=== PATIENT | male | born 1940 | race Caucasian/White ===

== ENCOUNTER 2022-07-30 14:12 | Emergency (ER) | payer MEDICARE, OTHER ==
[2022-07-30] MEDS ORDERED: Furosemide 40 MG/4 ML VIAL ONE (14:30)
[2022-07-30 14:58] LABS: ALV-art Gradient 405.975 mmHg (0-20); Actual Bicarbonate (HCO3a) 23.1 mEq/L (22-28); Base Excess (BEa) -4.1 mEq/L (-2.0 to +3.0); CO2 Tension 50.1 mmHg (35.0-45.0); Calcium, Ionized (arterial) 1.19 mmol/L (1.12-1.30); Carboxyhemoglobin (COHb) 1.3 gm% (0.0-3.0); Hemoglobin (Hb) 15.5 g/dL (14.0-18.0); O2 Tension (PaO2), arterial 101.8 mmHg (> 60.0); Potassium - ABG Lab 4.1 mmol/L (3.70-5.30); Puncture Site RRA; pH, Arterial 7.28 (7.35-7.45)
[2022-07-30 15:00] LABS: Bilirubin Neg (Negative); Blood, Urine 10 (Negative); Clarity Clear (Clear); Glucose, Urine (Dipstick) Normal (Negative); Ketone, Urine Negative (Negative); Leukocyte Negative (Negative); Nitrite Negative (Negative); Protein, Urine (Dipstick) 30 mg/dl (Neg-Trace); Urobilinogen Normal mg/dL (Less than 2)
[2022-07-30 15:00] LABS: #Basophils 0.1 10x3/uL (0.0-0.2); #Eosinphils 0.1 10x3/uL (0.0-0.5); #Monocytes 1.1 10x3/uL (0.0-1.1); #Neutrophils 13.8 10x3/uL (1.5-8.4); %Basophils 0.4 % (0.0-2.0); %Eosinophils 0.7 % (0.0-6.0); %Lymphocytes 8.4 % (18.0-47.0); %Monocytes 6.4 % (0.0-10.0); %Neutrophils 83.4 % (40.0-75.0); Hemoglobin 14.7 g/dL (13.5-17.5); Mean Corpuscular Hemoglobin 29.2 pg (27.0-33.0); Mean Corpuscular Volume 88.7 fl (81.2-95.1); Mean Platelet Volume 11.1 fl (7.4-10.4); Platelet Count 225 10x3/uL (150-450); RBC Distribution Width 14.8 % (11.5-14.5); Red Blood Cell (RBC) Count 5.03 10x6/uL (4.32-5.72); White Blood Cell (WBC) Count 16.6 10x3/uL (3.5-10.5)
[2022-07-30 15:20] LABS: ALT (SGPT) 19 U/L (8-55); AST (SGOT) 17 U/L (5-34); Albumin 4.1 g/dL (3.4-4.8); Alkaline Phosphatase 44 U/L (40-110); Anion Gap 15 mmol/L (10-20); BUN (Urea Nitrogen) 20 mg/dL (8.4-25.7); Bilirubin, Total 1.5 mg/dL (0.2-1.2); Calc. Creatinine Clearance 0 mL/min (70-130); Calcium 8.9 mg/dL (7.8-10.44); Carbon Dioxide 21 mmol/L (23-31); Chloride 105 mmol/L (98-107); Estimated GFR 65; Glucose 164 mg/dL (83-110); Potassium 4.3 mmol/L (3.5-5.1); Protein, Total 7.1 g/dL (5.8-8.1); Sodium 137 mmol/L (136-145)
[2022-07-30 15:21] LABS: SARS-CoV-2 NAA Rapid Test Not Detected (NotDetected)
[2022-07-30 15:24] LABS: Bacteria/HPF 1+ HPF (None Seen); Squamous Epithelial 0-3 HPF (0-3); WBC/HPF 0-3 HPF (0-3)
== END 2022-07-30 19:12 | disposition short-term general hospital (02) ==
LOC: CSHERS 14:12
DX: I50.9 Heart failure, unspecified (principal); I35.0 Nonrheumatic aortic (valve) stenosis; D72.829 Elevated white blood cell count, unspecified; Z20.822 Contact with and (suspected) exposure to COVID-19
CPT/HCPCS: 0240U; 36600; 71045; 80053; 82805; 83880; 84484; 85025; 93005; 94660; 36415; 81003; 81015; 96374; J1940

== ENCOUNTER 2024-09-15 02:05 | Inpatient (IN) | payer MEDICARE, OTHER ==
[2024-09-15 03:15] VITALS: BMI 31.1
[2024-09-15] MEDS ORDERED: Guaifenesin DM 100-10/5 ML UDCUP PO PRN (03:24)
[2024-09-15] MEDS ORDERED: Senokot S 8.6-50 MG TAB PO PRN (03:24)
[2024-09-15] MEDS ORDERED: Ondansetron PF 4 MG/2 ML Vial IVP PRN (03:24)
[2024-09-15] MEDS ORDERED: Calcium Carbonate 500 MG ChewTAB PO PRN (03:24)
[2024-09-15] MEDS: Metoprolol Tartrate 25 MG TAB PO SCH ×2 (03:45→09:50)
[2024-09-15] MEDS: Furosemide 20 MG (2 mL) VIAL SLOW IVP SCH (03:45)
[2024-09-15] MEDS: Cefepime 2 GM in Sodium Chloride 0.9% 100 ML IVPB SCH (03:45)
[2024-09-15 04:27] LABS: #Basophils 0.03 10x3/uL (0.0-0.2); #Eosinophils Less than 0.03 10x3/uL (0.0-0.5); #Monocytes 0.28 10x3/uL (0.0-1.1); #Neutrophils 12.31 10x3/uL (1.5-8.4); %Basophils 0.2 % (0.0-2.0); %Eosinophils 0.1 % (0.0-6.0); %Lymphocytes 3.4 % (18.0-47.0); %Monocytes 2.1 % (0.0-10.0); %Neutrophils 93.7 % (40.0-75.0); Hematocrit 40.6 % (38.8-50.0); Hemoglobin 12.9 g/dL (13.5-17.5); Mean Corpuscular HGB CONC 31.8 g/dL (32.0-36.0); Mean Corpuscular Hemoglobin 28.9 pg (27.0-33.0); Mean Platelet Volume 11.3 fL (7.4-10.4); Platelet Count 146 10x3/uL (150-450); RBC Distribution Width 15.1 % (11.5-14.5); Red Blood Cell (RBC) Count 4.46 10x6/uL (4.32-5.72); White Blood Cell (WBC) Count 13.14 10x3/uL (3.5-10.5)
[2024-09-15] MEDS: Doxycycline 100 MG in Sodium Chloride 0.9% 100 ML IVPB SCH (04:37)
[2024-09-15 04:44] LABS: Anion Gap 16 mmol/L (10-20); BUN (Urea Nitrogen) 16 mg/dL (8.4-25.7); Calc. Creatinine Clearance 67 mL/min (70-130); Calcium 9.1 mg/dL (7.8-10.44); Carbon Dioxide 19 mmol/L (23-31); Chloride 108 mmol/L (98-107); Estimated GFR 57; Glucose 158 mg/dL (83-110); Potassium 4.1 mmol/L (3.5-5.1); Sodium 139 mmol/L (136-145)
[2024-09-15 04:47] LABS: Troponin I 0.042 ng/mL (< 0.028)
[2024-09-15 05:11] LABS: Legionella Urinary Ag Negative (Negative); Strep pneumo Urine Ag NEGATIVE (NEGATIVE)
[2024-09-15 08:28] LABS: Troponin I 0.048 ng/mL (< 0.028)
[2024-09-15] MEDS: Allopurinol 300 MG TAB PO SCH (09:43)
[2024-09-15] MEDS: Magnesium Oxide 400 MG TAB PO SCH (09:45)
[2024-09-15] MEDS: Pantoprazole 40 MG DR.TAB PO SCH (09:45)
[2024-09-15] MEDS: Apixaban 5 MG TAB PO SCH (09:45)
[2024-09-15] MEDS: Oseltamivir 75 MG CAP PO SCH (09:46)
[2024-09-15] MEDS: Amiodarone 200 MG TAB PO SCH (09:47)
[2024-09-15] MEDS: Ranolazine ER 500 MG TAB PO SCH (09:49)
[2024-09-15] MEDS: Furosemide 40 MG (4 mL) VIAL SLOW IVP SCH (14:20)
[2024-09-15 15:33] LABS: Magnesium 1.9 mg/dL (1.6-2.6)
[2024-09-15] MEDS: Metoprolol Tartrate 50 MG TAB PO SCH (21:16)
[2024-09-15] MEDS: Rosuvastatin 20 MG TAB PO SCH (21:17)
[2024-09-16 05:29] LABS: #Basophils Less than 0.03 10x3/uL (0.0-0.2); #Eosinophils Less than 0.03 10x3/uL (0.0-0.5); #Monocytes 1.48 10x3/uL (0.0-1.1); #Neutrophils 17.56 10x3/uL (1.5-8.4); %Basophils 0.1 % (0.0-2.0); %Lymphocytes 5.5 % (18.0-47.0); %Monocytes 7.3 % (0.0-10.0); %Neutrophils 86.5 % (40.0-75.0); Hematocrit 37.6 % (38.8-50.0); Hemoglobin 12.6 g/dL (13.5-17.5); Mean Corpuscular HGB CONC 33.5 g/dL (32.0-36.0); Mean Corpuscular Hemoglobin 30.6 pg (27.0-33.0); Mean Corpuscular Volume 91.3 fL (81.2-95.1); Mean Platelet Volume 11.9 fL (7.4-10.4); Platelet Count 183 10x3/uL (150-450); RBC Distribution Width 15.1 % (11.5-14.5); Red Blood Cell (RBC) Count 4.12 10x6/uL (4.32-5.72)
[2024-09-16 05:46] LABS: Anion Gap 13 mmol/L (10-20); BUN (Urea Nitrogen) 33 mg/dL (8.4-25.7); Calc. Creatinine Clearance 64 mL/min (70-130); Carbon Dioxide 24 mmol/L (23-31); Chloride 106 mmol/L (98-107); Estimated GFR 54; Glucose 139 mg/dL (83-110); Potassium 4.1 mmol/L (3.5-5.1); Sodium 139 mmol/L (136-145)
[2024-09-16] MEDS: Isosorbide Mononitrate 30 MG ER.TAB PO SCH (10:20)
[2024-09-16] MEDS: Spironolactone 25 MG TAB PO SCH (10:20)
[2024-09-16] MEDS: guaiFENesin ER 600 MG TAB PO SCH (10:20)
[2024-09-16] MEDS: Losartan 50 MG TAB PO SCH (10:21)
[2024-09-16] MEDS: Furosemide 40 MG TAB PO SCH (15:01)
[2024-09-16] MEDS: Magnesium 2 GM/50 ML(in water) 2 GM in Premix 1 BAG IVPB SCH (15:01)
[2024-09-16] MEDS: Apixaban 5 MG TAB PO SCH (21:00)
[2024-09-17 05:05] LABS: #Basophils 0.04 10x3/uL (0.0-0.2); #Eosinophils 0.08 10x3/uL (0.0-0.5); #Monocytes 1.63 10x3/uL (0.0-1.1); %Basophils 0.3 % (0.0-2.0); %Eosinophils 0.5 % (0.0-6.0); %Lymphocytes 13.7 % (18.0-47.0); %Monocytes 10.4 % (0.0-10.0); %Neutrophils 74.7 % (40.0-75.0); Hematocrit 37.9 % (38.8-50.0); Hemoglobin 12.4 g/dL (13.5-17.5); Mean Corpuscular HGB CONC 32.7 g/dL (32.0-36.0); Mean Corpuscular Hemoglobin 29.7 pg (27.0-33.0); Mean Corpuscular Volume 90.9 fL (81.2-95.1); Mean Platelet Volume 11.7 fL (7.4-10.4); Platelet Count 187 10x3/uL (150-450); RBC Distribution Width 15.2 % (11.5-14.5); Red Blood Cell (RBC) Count 4.17 10x6/uL (4.32-5.72); White Blood Cell (WBC) Count 15.66 10x3/uL (3.5-10.5)
[2024-09-17 05:23] LABS: Anion Gap 12 mmol/L (10-20); BUN (Urea Nitrogen) 44 mg/dL (8.4-25.7); Calc. Creatinine Clearance 48 mL/min (70-130); Carbon Dioxide 29 mmol/L (23-31); Chloride 103 mmol/L (98-107); Estimated GFR 40; Glucose 120 mg/dL (83-110); Magnesium 2.2 mg/dL (1.6-2.6); Sodium 140 mmol/L (136-145)
[2024-09-17] MEDS: methylPREDNISolone Sod Succ/PF 125 MG/2 ML VIAL IVP SCH (11:29)
[2024-09-18 04:29] LABS: #Basophils Less than 0.03 10x3/uL (0.0-0.2); #Eosinophils Less than 0.03 10x3/uL (0.0-0.5); #Monocytes 0.39 10x3/uL (0.0-1.1); #Neutrophils 12.03 10x3/uL (1.5-8.4); %Basophils 0.1 % (0.0-2.0); %Lymphocytes 8.5 % (18.0-47.0); %Monocytes 2.9 % (0.0-10.0); Hematocrit 39.3 % (38.8-50.0); Hemoglobin 13.4 g/dL (13.5-17.5); Mean Corpuscular HGB CONC 34.1 g/dL (32.0-36.0); Mean Corpuscular Hemoglobin 30.2 pg (27.0-33.0); Mean Corpuscular Volume 88.7 fL (81.2-95.1); Platelet Count 199 10x3/uL (150-450); RBC Distribution Width 14.6 % (11.5-14.5); Red Blood Cell (RBC) Count 4.43 10x6/uL (4.32-5.72); White Blood Cell (WBC) Count 13.67 10x3/uL (3.5-10.5)
[2024-09-18 04:51] LABS: Anion Gap 15 mmol/L (10-20); BUN (Urea Nitrogen) 45 mg/dL (8.4-25.7); Calc. Creatinine Clearance 57 mL/min (70-130); Calcium 9.5 mg/dL (7.8-10.44); Carbon Dioxide 27 mmol/L (23-31); Chloride 102 mmol/L (98-107); Estimated GFR 49; Glucose 139 mg/dL (83-110); Magnesium 2.1 mg/dL (1.6-2.6); Potassium 4.3 mmol/L (3.5-5.1); Sodium 140 mmol/L (136-145)
[2024-09-18] MEDS ORDERED: Doxycycline 100 MG CAP PO SCH (09:00)
[2024-09-18] MEDS: Amiodarone 200 MG TAB PO SCH (09:06)
[2024-09-18] MEDS: Ipratropium/Albuterol 3 ML NEB NEB PRN (10:03)
[2024-09-19 04:59] LABS: #Basophils 0.05 10x3/uL (0.0-0.2); #Eosinophils Less than 0.03 10x3/uL (0.0-0.5); #Monocytes 2.16 10x3/uL (0.0-1.1); #Neutrophils 13.55 10x3/uL (1.5-8.4); %Basophils 0.3 % (0.0-2.0); %Eosinophils 0.1 % (0.0-6.0); %Lymphocytes 16.4 % (18.0-47.0); %Monocytes 11.4 % (0.0-10.0); %Neutrophils 71.2 % (40.0-75.0); Hematocrit 41.6 % (38.8-50.0); Hemoglobin 14.2 g/dL (13.5-17.5); Mean Corpuscular HGB CONC 34.1 g/dL (32.0-36.0); Mean Corpuscular Volume 87.9 fL (81.2-95.1); Mean Platelet Volume 11.2 fL (7.4-10.4); Platelet Count 203 10x3/uL (150-450); RBC Distribution Width 14.6 % (11.5-14.5); Red Blood Cell (RBC) Count 4.73 10x6/uL (4.32-5.72); White Blood Cell (WBC) Count 19.01 10x3/uL (3.5-10.5)
[2024-09-19 05:36] LABS: Anion Gap 17 mmol/L (10-20); BUN (Urea Nitrogen) 50 mg/dL (8.4-25.7); Calc. Creatinine Clearance 53 mL/min (70-130); Calcium 9.7 mg/dL (7.8-10.44); Carbon Dioxide 27 mmol/L (23-31); Chloride 101 mmol/L (98-107); Estimated GFR 46; Glucose 113 mg/dL (83-110); Potassium 4.2 mmol/L (3.5-5.1); Sodium 141 mmol/L (136-145)
[2024-09-19] MEDS: cefTRIAXone\\ROCEPHIN 2 GM in Sodium Chloride 0.9% 100 ML IVPB SCH (08:55)
[2024-09-19] MEDS: Doxycycline 100 MG in Sodium Chloride 0.9% 100 ML IVPB SCH (09:56)
[2024-09-19] MEDS: Acetaminophen 325 MG TAB PO PRN (14:36)
[2024-09-20 04:45] LABS: #Basophils 0.07 10x3/uL (0.0-0.2); #Eosinophils 0.15 10x3/uL (0.0-0.5); #Monocytes 1.78 10x3/uL (0.0-1.1); #Neutrophils 8.38 10x3/uL (1.5-8.4); %Basophils 0.5 % (0.0-2.0); %Eosinophils 1.1 % (0.0-6.0); %Monocytes 12.5 % (0.0-10.0); %Neutrophils 58.9 % (40.0-75.0); Hematocrit 45.2 % (38.8-50.0); Mean Corpuscular HGB CONC 33.2 g/dL (32.0-36.0); Mean Corpuscular Hemoglobin 28.7 pg (27.0-33.0); Mean Corpuscular Volume 86.4 fL (81.2-95.1); Mean Platelet Volume 10.9 fL (7.4-10.4); Platelet Count 177 10x3/uL (150-450); RBC Distribution Width 14.3 % (11.5-14.5); Red Blood Cell (RBC) Count 5.23 10x6/uL (4.32-5.72); White Blood Cell (WBC) Count 14.21 10x3/uL (3.5-10.5)
[2024-09-20 05:12] LABS: Anion Gap 16 mmol/L (10-20); BUN (Urea Nitrogen) 56 mg/dL (8.4-25.7); Calc. Creatinine Clearance 0 mL/min (70-130); Calcium 9.1 mg/dL (7.8-10.44); Carbon Dioxide 27 mmol/L (23-31); Chloride 102 mmol/L (98-107); Estimated GFR 42; Glucose 119 mg/dL (83-110); Potassium 3.8 mmol/L (3.5-5.1); Sodium 141 mmol/L (136-145)
[2024-09-20] MEDS: Furosemide 40 MG TAB PO SCH (10:28)
[2024-09-20 11:45] VITALS: BP 114/65; TEMP 98.3
== END 2024-09-20 13:44 | disposition home or self-care (01) | DRG 871 ==
LOC: CSHTELE 03:00
PROVIDERS: ADMIT Student in an Organized Health Care Education/Training Program; ATTEND Family Medicine
DX: A41.9 Sepsis, unspecified organism (principal); I50.43 Acute on chronic combined systolic (congestive) and diastolic (congestive) heart failure; J10.00 Influenza due to other identified influenza virus with unspecified type of pneumonia; J96.01 Acute respiratory failure with hypoxia; I5A Non-ischemic myocardial injury (non-traumatic); I13.0 Hypertensive heart and chronic kidney disease with heart failure and stage 1 through stage 4 chronic kidney disease, or unspecified chronic kidney disease; N17.9 Acute kidney failure, unspecified; M10.9 Gout, unspecified; N18.30 Chronic kidney disease, stage 3 unspecified; E11.22 Type 2 diabetes mellitus with diabetic chronic kidney disease; E78.2 Mixed hyperlipidemia; I35.0 Nonrheumatic aortic (valve) stenosis; I48.0 Paroxysmal atrial fibrillation; I25.10 Atherosclerotic heart disease of native coronary artery without angina pectoris; Z88.0 Allergy status to penicillin; Z88.8 Allergy status to other drugs, medicaments and biological substances; Z79.899 Other long term (current) drug therapy; Z98.890 Other specified postprocedural states
CPT/HCPCS: 36415; 36416; 71045; 71250; 80048; 83735; 83880; 84145; 84443; 85025; 87449; 87899; 93005; 93010; 93306; 94640; 94760; 94762; J0692; J0696; J1940; J2919; J3475; J7620